=== PATIENT | female | born 1990 | race Two or more races ===

== ENCOUNTER 2020-06-03 10:15 | Emergency (ER) | payer OTHER ==
[~2020-06-03] VITALS: Ht 165.1 cm; Wt 61.2 kg
[2020-06-03] MEDS ORDERED: TOPROL XL50 M1 (10:25)
[2020-06-03] MEDS ORDERED: AZULFIDINE500 M1 (10:25)
[2020-06-03] MEDS ORDERED: SYNTHROID125 MCG (10:25)
[2020-06-03] MEDS ORDERED: PROTONIX40 MG (10:26)
[2020-06-03] MEDS ORDERED: PROTONIX40 MG PO (19:15)
[2020-06-03] MEDS ORDERED: DICY20TA PO (19:15)
[2020-06-03] MEDS ORDERED: CIPRO500 MG PO (19:15)
[2020-06-03] MEDS ORDERED: FLAGYL500MG PO (19:15)
== END 2020-06-03 19:31 | disposition home or self-care (01) ==
LOC: ER 10:15
DX: R10.13 Epigastric pain (principal); K52.89 Other specified noninfective gastroenteritis and colitis
CPT/HCPCS: 74177; Q9965